=== PATIENT | male | born 1960 ===

== ENCOUNTER 2019-09-06 09:54 | Emergency (ER) | payer OTHER ==
[~2019-09-06] VITALS: Ht 170.2 cm; Wt 67.1 kg
[2019-09-06] MEDS ORDERED: AMLODIPINE-OLM1 EACH (11:12)
[2019-09-06] MEDS ORDERED: KOMBIGLYZE XR1 EAC1 (11:13)
[2019-09-06] MEDS ORDERED: LOSARTAN-HCTZ1 EAC1 (11:13)
[2019-09-06] MEDS ORDERED: DOXAZOSIN MESYLA2 MG (11:14)
[2019-09-06] MEDS ORDERED: FARXIGA5 MG (11:15)
== END 2019-09-06 13:50 | disposition home or self-care (01) ==
LOC: ER 09:54
DX: L02.511 Cutaneous abscess of right hand (principal)

== ENCOUNTER 2025-01-30 05:12 | Day surgery (SDC) | payer OTHER ==
[~2025-01-30 05:12] MED LIST: AMLODIPINE-OLM1 EACH; DOXAZOSIN MESYLA2 MG; FARXIGA5 MG; KOMBIGLYZE XR1 EAC1; LOSARTAN-HCTZ1 EAC1
[2025-01-30] MEDS ORDERED: ENOXAPARIN SODIUM 40 MG/0.4 ML SYRINGE SUBCUTANEO ONE ×2 (08:06→08:23)
[2025-01-30] MEDS ORDERED: CEFTRIAXONE SODIUM 2,000 MG VIAL ONE ×2 (08:07→08:23)
[2025-01-30] MEDS ORDERED: METRONIDAZOLE/SODIUM CHLORIDE 500 MG/100 ML PIGGYBACK IV ONE ×2 (08:07→08:24)
[2025-01-30] MEDS ORDERED: BUPIVACAINE HCL/MPF 0.5% 30ML VIAL ONE (10:16)
[2025-01-30] MEDS ORDERED: POLY119PG PO (11:31)
[2025-01-30] MEDS ORDERED: CELEBREX200MG PO (11:31)
[2025-01-30] MEDS ORDERED: NEURONTIN300 MG PO (11:31)
[2025-01-30] MEDS ORDERED: PERCOCET 5-3251 EACH PO (11:31)
== END 2025-01-30 18:10 | disposition home or self-care (01) ==
LOC: CIR.AMB 05:12
PROVIDERS: ATTEND Surgery
DX: K40.90 Unilateral inguinal hernia, without obstruction or gangrene, not specified as recurrent (principal)
CPT/HCPCS: 49650; C1781